=== PATIENT | female | born 1980 | race Caucasian/White ===

== ENCOUNTER 2021-01-10 06:17 | Inpatient (IN) | payer OTHER, SELFPAY ==
[~2021-01-10] VITALS: Ht 180.3 cm; Wt 101.2 kg
[2021-01-10 07:01] LABS: BASOPHILS % (AUTO) 0.7 % (0.0-2.0); EOSINOPHILS # (AUTO) 0.2 K/uL (0-0.4); EOSINOPHILS % (AUTO) 3.2 % (0.0-4.0); HEMATOCRIT 37.7 % (36-48); HEMOGLOBIN 12.8 g/dL (12.0-16.0); LYMPHOCYTES # (AUTO) 2.2 K/uL (2.5-16.5); LYMPHOCYTES % (AUTO) 42.7 % (20.5-51.1); MEAN CORPUSCULAR HEMOGLOBIN 30 pg (27-31); MEAN CORPUSCULAR HGB CONC 34 g/dL (33-37); MEAN CORPUSCULAR VOLUME 89.6 fL (80-94); MONOCYTES # (AUTO) 0.4 K/uL (0.8-1.0); MONOCYTES % (AUTO) 7.4 % (1.7-9.3); NEUTROPHILS # (AUTO) 2.4 K/uL (1.8-7.7); PLATELET COUNT (AUTO) 235 K/uL (140-450); RED BLOOD CELL COUNT(AUTO) 4.21 MIL/uL (4.20-5.40); WHITE BLOOD COUNT (AUTO) 5.3 K/uL (4.8-10.8)
[2021-01-10 07:15] LABS: ANION GAP 9.2 (8-16); CARBON DIOXIDE 29.7 mmol/L (21-32); CREATININE 0.9 mg/dL (0.6-1.3); POTASSIUM 3.9 mmol/L (3.5-5.1); TOTAL BILIRUBIN 0.9 mg/dL (0.0-1.0)
[2021-01-10] MEDS ORDERED: BUPIVACAINE-MPF/EPI 0.25% 30 ML VIAL INJ ONE (10:16)
[2021-01-10] MEDS ORDERED: LIDOCAINE 1% 500 MG/50 ML VIAL ONE (10:16)
[2021-01-10] MEDS ORDERED: fentaNYL citrate 0.05 MG/ML VIAL ONE (10:26)
[2021-01-10] MEDS ORDERED: SUCCINYLCHOLINE CHLORIDE 200 MG/10 ML VIAL IVP ONE (10:45)
[2021-01-10] MEDS ORDERED: PROPOFOL 200 MG/20 ML VIAL IV ONE (10:45)
[2021-01-10] MEDS ORDERED: ONDANSETRON 4 MG/2 ML VIAL ONE (10:45)
[2021-01-10] MEDS ORDERED: KETOROLAC 30 MG/ML VIAL ONE (10:45)
[2021-01-10] MEDS ORDERED: ROCURONIUM 50 MG/5 ML VIAL IV ONE (10:46)
[2021-01-10] MEDS ORDERED: DEXAMETHASONE 4 MG/ML VIAL ONE (10:46)
[2021-01-10] MEDS ORDERED: HYDROmorphone PFS 2 MG/ML SYR ONE ×2 (10:47→12:22)
[2021-01-10] MEDS ORDERED: ONDANSETRON 4 MG/2 ML VIAL IVP PRN (10:55)
[2021-01-10] MEDS ORDERED: GLYCOPYRROLATE 0.2 MG/ML VIAL ONE ×2 (11:29)
[2021-01-10] MEDS ORDERED: NEOSTIGMINE 1:1000 10 MG/10 ML VIAL ONE (11:29)
[2021-01-10] MEDS ORDERED: HYDROmorphone 1 MG/ML AMP IVP PRN (11:35)
[2021-01-10] MEDS ORDERED: ONDANSETRON 4 MG/2 ML VIAL IV PRN (11:35)
[2021-01-10] MEDS ORDERED: MORPHINE SULFATE 4 MG/ML SYR IV PRN (11:35)
[2021-01-10] MEDS: HYDROmorphone 1 MG/ML AMP IVP PRN ×3 (12:15→12:35)
[2021-01-10] MEDS ORDERED: HYDROmorphone 1 MG/ML AMP IVP ONE (13:40)
[2021-01-10 14:45] VITALS: BP 117/76
--- NOTE | 2021-01-10 14:45 | NUR ---
PT TRANSFERRED ON GURNEY FROM PACU. PT DROWSY. BP 129/75, HR 58, RR 18, TEMP 97.6, O2 100%. PT ORIENTED TO ROOM. PATIENT'S SIGNIFICANT OTHER PRESENT IN ROOM. ALL SAFETY MEASURES IN PLACE. CALL LIGHT WITHIN REACH.
[2021-01-10 16:00] VITALS: BP 117/76
--- NOTE | 2021-01-10 16:45 | NUR ---
PT STATES SHE HAS 7/10 PAIN ON HER ABDOMEN. PAIN IS SHARP AND CONTINUOUS. POSITION CHANGE AND RELAXATION TECHNIQUES PROVIDED. PAIN MEDICATION GIVEN PER MD ORDER. NO S/S OF DISTRESS. PT ON 2L OF O2 VIA NC. 98% ON O2 SAT. CALL LIGHT WITHIN REACH.
[2021-01-10] MEDS: MORPHINE SULFATE 2 MG/ML SYR IVP PRN ×2 (16:46→21:14)
--- NOTE | 2021-01-10 17:15 | NUR ---
PAIN REEVALUATED. PT STATES PAIN IS RELIEVED WITH PRN MEDICATION, PAIN IS 1/10. PATIENT RESTING COMFORTABLY IN BED. ALL SAFETY MEASURES ARE IN PLACE.
--- NOTE | 2021-01-10 18:58 | NUR ---
PT AMBULATED TO BATHROOM, 2 PERSON ASSIST. PT TOLERATED WELL. PT IS NOW BACK IN BED. ALL SAFETY MEASURES IN PLACE. ADRIÁN LIGHT WITHIN REACH.
--- NOTE | 2021-01-10 19:02 | NUR ---
PT IS DIZZY AND IN PAIN . PT STATES SHE IS NOT READY TO GO HOME. DURING AMBULATION PT NEEDED TWO PT ASSISTANCE. UNSTEADY IN GAIT Addendum: 01/10/21 at 1939 by Mary Raymond RN RN AWARE AND ORDERS CARRIED THROUGH
--- NOTE | 2021-01-10 19:20 | NUR ---
PT ENDORSED TO SECONDARY SET UP MAN NURSE. PATIENT ABLE TO MAKE NEEDS KNOW. N0 S/S OF DISTRESS. ALL SAFETY MEASURES IN PLACE.
--- NOTE | 2021-01-10 19:21 | NUR ---
RECEIVED PATIENT FROM AM NURSE FOR CONTINUITY OF CARE. PATIENT IS A/A/O X4, STILL DROWSY. RESTING IN BED. RESPIRATORY EVEN AND UNLABORED, ON ROOM AIR, NO SIGN OF DISTRESS NOTED. SKIN WARM, DRY, NON DIAPHORETIC, IV ON RIGHT AC 22G, INTACT AND PATENT, SALINE LOCK. 4 INCISIONS FROM LAP MATT ON ABDOMEN, TOA, CLEAN AND DRY, NO DRAINAGE NOTED. PATIENT ABLE TO VERBALIZE NEEDS. AT BEDSIDE. PLAN OF CARE DISCUSSED, PATIENT AND FAMILY VERBALIZED UNDERSTANDING. PRECAUTION IN PLACE. CALL LIGHT WITHIN REACH. WILL CONTINUE TO MONITOR.
[2021-01-10 20:00] VITALS: BP 115/64
--- NOTE | 2021-01-10 21:14 | NUR ---
PATIENT REPORTS HAVING PAIN ON HER INCISIONS, PAIN IS SHARP AND CONTINUOUS. POSITION CHANGE PROVIDE, PRN MEDICATION GIVEN ORDER WITH EDUCATION. PATIENT VERBALIZED UNDERSTANDING. NO SIGN OF DISTRESS NOTED. WILL CONTINUE TO MONITOR.
--- NOTE | 2021-01-10 21:40 | NUR ---
PATIENT AMBULATES TO BATHROOM WITH 2 PERSON ASSIST. PATIENT TOLERATED WELL. NO SIGN OF DISTRESS. WILL CONTINUE TO MONITOR.
--- NOTE | 2021-01-11 | NUR ---
ROUND CHECK. PATIENT IS SLEEPING, CHEST RISE AND FALL NOTED, O2 SAT 97%, NO SIGN OF RESPIRATORY DISTRESS. CALL LIGHT WITHIN REACH. WILL CONTINUE TO MONITOR.
--- NOTE | 2021-01-11 00:40 | NUR ---
ASSIST PATIENT AMBULATE TO BATHROOM. PATIENT TOLERATED WELL. NO SIGN OF DISTRESS. WILL CONTINUE TO MONITOR.
--- NOTE | 2021-01-11 02:00 | NUR ---
ROUND CHECK. PATIENT IS SLEEPING, CHEST RISE AND FALL, NO SIGN OF RESPIRATORY DISTRESS, O2 SAT 97%. HOB ELEVATED. CALL LIGHT WITHIN REACH. WILL CONTINUE TO MONITOR.
[2021-01-11] MEDS: HYDROcodone/APAP 5/325 MG 1 TAB TAB PO PRN ×2 (02:49→08:45)
--- NOTE | 2021-01-11 03:14 | NUR ---
ENDORSED PATIENT TO GISELLE WATSON DUE TO CHANGE ASSIGNMENT. PATIENT IS STABLE.
--- NOTE | 2021-01-11 03:15 | NUR ---
ASSUMED CARE FROM RN ROCKY REGARDING THE PATIENT FOR CONTINUITY OF CARE. RECEIVED PATIENT AWAKE, ALERT, LAYING IN BED ON HER PHONE. PATIENT VERBALIZED THAT SHE HAS PAIN WHEN SHE TAKES A DEEP BREATH AND OFFERED TO GIVE HER A INCENTIVE SPIROMETER AND EXPLAINED TO THE PATIENT THAT IT HELP PREVENT POST OP COMPLICATION. PATIENT REFUSED THE I.S. AND STATED SHE WONT BE ABLE TO USE IT. PT HAS 4 LAP SITES WITH DERMA MCKEON ALL C/D/I. PATIENT STATED THAT SHE IS PASSING GAS AND BURPING. PATIENT WAS JUST GIVEN NORCO 77 MINUTES AGO. INSTRUCTED THE PT TO CALL IF SHE NEEDS ANYTHING. CALL LIGHT WITHIN REACH. WILL CONTINUE OBSERVATION.
--- NOTE | 2021-01-11 04:35 | NUR ---
PATIENT STILL AWAKE AND ON HER PHONE. NO COMPLAIN AT THIS TIME AND NOT IN ANY DISTRESS. CALL LIGHT WITHIN REACH. WILL CONTINUE OBSERVATION.
[2021-01-11 04:59] LABS: BASOPHILS % (AUTO) 0.2 % (0.0-2.0); EOSINOPHILS % (AUTO) 0.2 % (0.0-4.0); HEMOGLOBIN 12.8 g/dL (12.0-16.0); LYMPHOCYTES # (AUTO) 1.6 K/uL (2.5-16.5); LYMPHOCYTES % (AUTO) 15.6 % (20.5-51.1); MEAN CORPUSCULAR HEMOGLOBIN 30 pg (27-31); MEAN CORPUSCULAR HGB CONC 35 g/dL (33-37); MEAN CORPUSCULAR VOLUME 87.8 fL (80-94); MONOCYTES # (AUTO) 0.7 K/uL (0.8-1.0); NEUTROPHILS # (AUTO) 7.8 K/uL (1.8-7.7); PLATELET COUNT (AUTO) 255 K/uL (140-450); RED BLOOD CELL COUNT(AUTO) 4.21 MIL/uL (4.20-5.40); RED CELL DISTRIBUTION WIDTH 12.9 % (11.6-13.7); WHITE BLOOD COUNT (AUTO) 10.1 K/uL (4.8-10.8)
[2021-01-11 05:11] LABS: ALBUMIN 3.6 g/dL (3.4-5.0); ANION GAP 13.1 (8-16); CARBON DIOXIDE 24.7 mmol/L (21-32); CREATININE 0.8 mg/dL (0.6-1.3); POTASSIUM 3.8 mmol/L (3.5-5.1); TOTAL BILIRUBIN 1.5 mg/dL (0.0-1.0)
--- NOTE | 2021-01-11 06:30 | NUR ---
PATIENT STABLE. NOT IN ANY DISTRESS AND NO COMPLAIN AT THIS TIME. ALL NEEDS ATTENDED. CALL LIGHT WITHIN REACH. WILL ENDORSE THE PATIENT TO THE ONCOMING RN FOR CONTINUITY OF CARE.
--- NOTE | 2021-01-11 07:33 | NUR ---
ENDORSED THE PATIENT TO DAY RN FOR CONTINUITY OF CARE. PATIENT STABLE. SIGNING OFF.
--- NOTE | 2021-01-11 07:35 | NUR ---
RECEIVED REPORT FROM NIGHT NURSE PT IS AAOX4 ON ROOM AIR, AMBULATORY WITH ASSIST FOR PAIN, LAST BOWEL MOVEMENT ON 01/09/21 IV INTACT ON RIGHT AC SALINE LOCK, S/P LAP MATT ON 01/10 4 INCISION OPEN TO AIR WITH DERMABOND. SAFETY ,EASURES IN PLACE AND CALL LIGHT WITHIN REACH. WILL CONTINUE TO MONITOR.
--- NOTE | 2021-01-11 07:46 | NUR ---
PT STATED TO HAVE ABDOMINAL PAIN WHEN SHE AMBULATED TO RESTRROM. SHE IS REQUESTING PAIN MEDICATIONS. HER PAIN IS RATED A 5/10 WHICH IS WORSENED WHEN SHE AMBULATES AND IT GETS BETTER WHEN SHE HAS MEDICATION. WILL ADMINISTERED PRN PAIN MEDICATION PER MD ORDER. CALL LIGHT WITHIN REACH. SAFETY PRECAUTIONS IN PLACE.
[2021-01-11 08:00] VITALS: BP 134/80
--- NOTE | 2021-01-11 08:46 | NUR ---
PAIN MEDICATION [id number] MG TAB PO ADMINISTERED. CALL LIGHT WITHIN REACH. WILL CONTINUE TO MONITOR.
--- NOTE | 2021-01-11 09:45 | NUR ---
PT AMBULATED AROUND ROOM FROM BED TO THE RESTROOM THREE TIMES. PT WAS GIVEN IS FOR DEEP BREATHING EXERCISE AND PREVENT ATELECTASIS.PT WAS EDUCATED ON THE IMPORTANCE OF AMBULATING AND THE PREVENTION OF BLOOD CLOTS AND HOW AMBULATION CAN HELP WITH FASTER WOUND HEALING.
[2021-01-11 11:50] VITALS: BP 134/80
--- NOTE | 2021-01-11 12:27 | NUR ---
4MG OF ZOFRAN WAS ADMINISTERED PER PT'S REQUEST. CALL LIGHT WITHIN REACH WILL CONTINUE TO MONITOR.
--- NOTE | 2021-01-11 12:35 | NUR ---
PT WAS DISCHARGED HOME ACCOMPANIED BY . PT WAS GIVEN A DISCHARGE INSTRUCTIONS PACKET. PT AND SPOUSE WERE EDUCATED ON DISEASE PROCESS, POST-OP CARE, DIETARY CHANGES, AND WHEN TO SEEK MEDICAL HELP. PT WAS ALSO INSTRUCTED TO FOLLOW-UP WITH PCP WITHIN 7 DAYS OF DISCHARGE. PT WAS EDUCATED ON THE SIDE EFFECTS OF THE PRESCRIPTIONS THAT WAS TO BE TAKEN PER MD ORDER. PT AND SPOUSED SHOWED UNDERSTANDING OF DISCHARGE TEACHING AND INSTRUCTIONS BY THE TEACH BACK METHOD. PT'S IV WAS DC'D. PT TOLERATED PROCEDURE WELL. NO BLEEDING WAS NOTED UPON EXPULSION OF IV. IV CATHETER WAS INTACT AND DISCARDED IN SHARPS CONTAINER. PT WAS ABLE TO DRESS HERSELF. PT WAS TAKEN BY WHEELCHAIR TO THE FRONT OF THE LOBBY ACCOMPANIED BY SPOUSE.
== END 2021-01-11 12:35 | disposition home or self-care (01) | DRG 263 ==
LOC: MMU 06:17 → MDS 06:17 → MTU 14:32
PROVIDERS: ADMIT Surgery; ATTEND Surgery
PROC: 0FT44ZZ Resection of Gallbladder, Percutaneous Endoscopic Approach (ICD-10-PCS; principal; 2021-01-10 08:40)
DX: K80.10 Calculus of gallbladder with chronic cholecystitis without obstruction (principal); Z20.822 Contact with and (suspected) exposure to COVID-19
CPT/HCPCS: 36415; 71045; 80053; 81025; 82374; 85025; 86886; 86900; 86901; 87081; 88304; J0330; J0690; J1100; J1170; J1885; J2001; J2270; J2405; J2704; J2710; J3010; J3490; J7030; J7060; U0003